=== PATIENT | female | born 1965 | race Caucasian/White ===

== ENCOUNTER 2016-09-02 16:07 | Emergency (ER) | payer SELFPAY ==
[~2016-09-02] VITALS: Ht 177.8 cm; Wt 92.1 kg
[~2016-09-02 16:07] MED LIST: BACT800T5 PO; IBUP200T2 PO; MEDR4PAK PO; PRIL40CA PO
[2016-09-02 16:17] VITALS: PULSE 67; RESP 19; TEMP 98.4; O2SAT 100
[2016-09-02] MEDS ORDERED: LEVO25TA4 PO (16:26)
--- NOTE | 2016-09-02 16:39 | PD ---
HPI . Left lower quadrant pain Chief Complaint: Abdominal Pain Time Seen by Provider: 16:23 Travel History International Travel<30 days: No Contact w/Intl Traveler<30days: No Traveled to known affect area: No History of Present Illness HPI Patient presents with the acute onset of severe left lower quadrant pain. She reports that the symptom onset was sudden. It is a sharp pain that is rated 9/ 10. She states that she cannot get comfortable. There are no exacerbating or relieving factors. Her pain is associated with nausea but no vomiting. No fever. No urinary tract symptoms. No previous similar history. PFSH Past Medical History Diminished Hearing: No GERD: Yes Musculoskeletal: Yes (SCIATICA,DDD) Immunizations Current: Yes Thyroid Disease: Yes Tetanus Vaccination: < 5 Years Influenza Vaccination: No ?: Not : 2 Para: 2 Ovarian Cysts: Yes (BIALTERALLY REMOVED) Tubal Ligation: Yes (1986) Past Surgical History Gynecologic Surgery: Yes (OVARIAN CYSTS 1998, TUBAL LIGATION 1986) Social History Alcohol Use: Yes (SOCIALLY) Tobacco Use: Yes Substance Use: No Allergies-Medications (Allergen,Severity, Reaction): Coded Allergies: Naprosyn (Verified Allergy, Mild, Nausea/Vomiting, 09/02/16) Codeine (Verified Adverse Reaction, Intermediate, GI upset, 09/02/16) Reported Meds & Prescriptions Reported Meds & Active Scripts Active Reported Levothyroxine (Levothyroxine Sodium) 25 Mcg Tab 25 Mcg PO DAILY Review of Systems Except as stated in HPI: all other systems reviewed are Neg General / Constitutional: Positive: Other (can't be still), No: Fever, Chills Gastrointestinal: Positive: Nausea, Abdominal Pain, No: Vomiting, Diarrhea Genitourinary: Positive: Pelvic Pain, No: Urgency, Frequency, Dysuria, Hematuria, Flank Pain Physical Exam Narrative GENERAL: The patient is very restless in the bed. SKIN: Warm and dry. HEAD: Atraumatic. Normocephalic. EYES: Pupils equal and round. Extraocular movements are intact. ENT: No nasal bleeding or discharge. Mucous membranes pink and moist. NECK: Trachea midline. Neck is supple. CARDIOVASCULAR: Regular rate and rhythm. RESPIRATORY: No accessory muscle use. GASTROINTESTINAL: Abdomen soft. Tender along the left side. Maximal tenderness is just above the left pubic symphysis. There is no CVA tenderness. MUSCULOSKELETAL: No obvious deformities. No edema. NEUROLOGICAL: Awake and alert. No obvious cranial nerve deficits. Motor grossly within normal limits. Normal speech. PSYCHIATRIC: Appropriate mood and affect; insight and judgment normal. Data Data Last Documented VS Vital Signs Date Time Temp Pulse Resp B/P Pulse Ox O2 Delivery O2 Flow Rate FiO2 09/02/16 17:18 18 09/02/16 17:11 80 126/74 97 Room Air 09/02/16 16:17 98.4 Orders Sodium Chlor 0.9% 1000 Ml Inj (Ns 1000 M (09/02/16 16:45) Ondansetron Inj (Zofran Inj) (09/02/16 16:45) Ct Abd/Pel W Iv Contrast(Rout) (09/02/16 16:33) Urinalysis - C+S If Indicated (09/02/16 16:33) Morphine Inj (Morphine Inj) (09/02/16 17:00) Morphine Inj (Morphine Inj) (09/02/16 17:00) Iohexol 350 Inj (Omnipaque 350 Inj) (09/02/16 17:09) Labs Laboratory Tests Test 09/02/16 16:40 Urine Collection Type CLEAN CATCH Urine Color STRAW Urine Turbidity MOD Urine pH 7.0 Urine Specific [place] 1.011 Urine Protein NEG mg/dL Urine Glucose (UA) NEG mg/dL Urine Ketones NEG mg/dL Urine Occult Blood LARGE Urine Nitrite NEG Urine Bilirubin NEG Urine Leukocyte Esterase NEG Urine RBC 50-99 /hpf Urine Squamous Epithelial 6-8 /hpf Cells Urine Amorphous Sediment LARGE Microscopic Urinalysis Comment CULT NOT INDICATED Urine Collection Time 1620 MDM Medical Decision Making Medical Screen Exam Complete: Yes Emergency Medical Condition: Yes Differential Diagnosis Differential diagnosis of abdominal pain includes but is not limited to gastritis, pancreatitis, hepatitis, gastroenteritis, gallbladder disease, constipation, urinary retention, UTI, peptic ulcer disease, diverticulitis or appendicitis Narrative Course This patient presents with the sudden onset of severe left lower quadrant abdominal pain. She looks like someone with a kidney stone. She will initially be treated with IV fluids and IV analgesics. A UA and CT have been ordered. Further evaluation and treatment will be based upon these results. Laboratory Tests Test 09/02/16 16:40 Urine Collection Type CLEAN CATCH Urine Color STRAW Urine Turbidity MOD Urine pH 7.0 Urine Specific [place] 1.011 Urine Protein NEG mg/dL Urine Glucose (UA) NEG mg/dL Urine Ketones NEG mg/dL Urine Occult Blood LARGE Urine Nitrite NEG Urine Bilirubin NEG Urine Leukocyte Esterase NEG Urine RBC 50-99 /hpf Urine Squamous Epithelial 6-8 /hpf Cells Urine Amorphous Sediment LARGE Microscopic Urinalysis Comment CULT NOT INDICATED Urine Collection Time 1620 CT>> Left-sided obstructive uropathy with mild left hydronephrosis. Calculus in left ureter at the level of L4-5 which measures about 6.5 mm in length and just under 4 mm in transverse diameter. The patient is now comfortable. She'll be discharged home with prescriptions for Percocet, Phenergan and Flomax. She will follow up with urology in the near future. Diagnosis Primary Impression: Renal calculus, left Referrals: Elia Ashraf MD Patient Instructions: General Instructions, Kidney Stones (DC), Narcotic given in the ED Med/Other Pt SpecificInfo: Prescription(s) given Scripts Tamsulosin (Flomax)0.4 Mg Cap0.4 Mg PO HS #10 CAP Ref 0 Prov:Hali Schultz MD 09/02/16 Promethazine (Phenergan)25 Mg [id number] Mg PO Q6H PRN (NAUSEA OR VOMITING) #15 TAB Ref 0 Prov:Hali Schultz MD 09/02/16 Oxycodone-Acetaminophen (Percocet)5-325 mg Tab1 Tab PO Q4H PRN (PAIN) #15 TAB Ref 0 Prov:Hali Schultz MD 09/02/16 Disposition: 01 DISCHARGE HOME Condition: Stable aHli Schultz MD Sep 02, 2016 16:39
[2016-09-02] MEDS ORDERED: SODIUM CHLOR 0.9% 1000 ML INJ 1,000 ML IV ONE (16:45)
[2016-09-02] MEDS ORDERED: MORPHINE SULFATE 4 MG/ML INJ IV PUSH PRN ×2 (16:45→17:00)
[2016-09-02] MEDS ORDERED: ONDANSETRON HCL 4 MG/2 ML VIAL IV PUSH ONE (16:45)
[2016-09-02 16:47] LABS: BLOOD, URINE LARGE (NEG); GLUCOSE,URINE NEG (NEG); KETONE, URINE NEG (NEG); NITRITE,URINE NEG (NEG)
[2016-09-02 16:48] LABS: METHOD OF COLLECTION CLEAN CATCH
[2016-09-02 16:49] LABS: URINE COLOR STRAW (YELLW/STRAW)
[2016-09-02 16:52] LABS: COMMENT (UR) CULT NOT INDICATED; CULTURE IF INDICATED CULT NOT INDICATED
[2016-09-02] MEDS ORDERED: MORPHINE SULFATE 8 MG/ML INJ IV PUSH PRN (17:00)
[2016-09-02] MEDS ORDERED: IOHEXOL 350 MG/ML 10 ML VIAL (for RAD DIAG) IV ONE (17:09)
[2016-09-02 17:11] VITALS: BP 126/74; PULSE 80; RESP 20; O2SAT 97
--- NOTE | 2016-09-02 17:17 | RADRPT ---
EXAM DATE/TIME: 09/02/2016 16:47 [facility] COMPARISON: No previous studies available for comparison. INDICATIONS : Left lower quadrant abdominal pain. IV CONTRAST: 100 cc Omnipaque 350 (iohexol) IV ORAL CONTRAST: No oral contrast ingested. RADIATION DOSE: 16.97 CTDIvol (mGy) MEDICAL HISTORY : DDD SURGICAL HISTORY : Tubal ligation. Ovarian cyst removed 1998 ENCOUNTER: Initial ACUITY: 1 day PAIN SCALE: 10/10 LOCATION: Left lower quadrant TECHNIQUE: Volumetric scanning of the abdomen and pelvis was performed. Using automated exposure control and ad justment of the mA and/or kV according to patient size, radiation dose was kept as low as reasonably achievable to obtain optimal diagnostic quality images. DICOM format image data is available electro nically for review and comparison. FINDINGS: There is minimal dependent atelectasis at the lung bases. Mild fatty liver. Spleen, adrenals, right kidney and pancreas unremarkable. There is a mild left-side d obstructive uropathy with mild left hydronephrosis. There is a calculus in the proximal left ureter extending over length of about 6.5 mm and a diameter of about 4 mm. No free fluid. No bowel obstruction. No adenopathy. CONCLUSION: 1. Left-sided obstructive uropathy with mild left hydronephrosis. Calculus in left ureter at the leve l of L4-5 which measures about 6.5 mm in length and just under 4 mm in transverse diameter. Kota Dunn MD on September 02, 2016 at 17:09 Board Certified Radiologist. This report was verified electronically.
[2016-09-02 17:18] VITALS: RESP 18
[2016-09-02] MEDS ORDERED: PERC5TAB12 PO (17:21)
[2016-09-02] MEDS ORDERED: TAMS5CAP PO (17:21)
[2016-09-02] MEDS ORDERED: PROM25TA10 PO (17:21)
[2016-09-02 17:38] VITALS: BP 122/78
== END 2016-09-02 17:39 | disposition home or self-care (01) ==
LOC: PHED 16:07
DX: N20.0 Calculus of kidney (principal)
CPT/HCPCS: 74177; 81001; 96374; 96375; 99285; J2270; J2405; J7030; Q9967

== ENCOUNTER 2016-09-29 14:36 | Emergency (ER) | payer OTHER ==
[~2016-09-29] VITALS: Ht 177.8 cm; Wt 94.0 kg
[~2016-09-29 14:36] MED LIST changes: -BACT800T5 PO; -IBUP200T2 PO; +LEVO25TA4 PO; -MEDR4PAK PO; +PERC5TAB12 PO; -PRIL40CA PO; +PROM25TA10 PO; +TAMS5CAP PO
[2016-09-29 14:52] VITALS: BP 142/78; PULSE 74; RESP 16; TEMP 98; O2SAT 98
[2016-09-29] MEDS ORDERED: PROMETHAZINE INJ 25 MG/ML VIAL IM ONE (15:15)
[2016-09-29] MEDS ORDERED: MORPHINE SULFATE 8 MG/ML INJ IM ONE (15:15)
[2016-09-29] MEDS ORDERED: PERC5TAB12 PO (15:18)
--- NOTE | 2016-09-29 15:20 | PD ---
HPI Chief Complaint: Flank/Kidney Pain Time Seen by Provider: 14:52 Travel History International Travel<30 days: No Contact w/Intl Traveler<30days: No Traveled to known affect area: No History of Present Illness HPI This patient was here 4 weeks ago with flank pain and found to have a kidney stone. She has called and made a urology appointment but it is not until October 04, about 4 days from now. Her flank pain returned and she called the urologist office but they said they could not fit her in any sooner and told her to come here. She has no fever or injury. No vomiting or diarrhea. Discomfort radiates into her left groin just like before. symptoms severity is moderate PFSH Past Medical History Diminished Hearing: No GERD: Yes Musculoskeletal: Yes (SCIATICA,DDD) Immunizations Current: Yes Thyroid Disease: Yes Tetanus Vaccination: < 5 Years ?: Not : 2 Para: 2 Ovarian Cysts: Yes (BIALTERALLY REMOVED) Tubal Ligation: Yes (1986) Past Surgical History Gynecologic Surgery: Yes (OVARIAN CYSTS 1998, TUBAL LIGATION 1986) Social History Alcohol Use: Yes (SOCIALLY) Tobacco Use: Yes Substance Use: No Allergies-Medications (Allergen,Severity, Reaction): Coded Allergies: Naprosyn (Verified Allergy, Mild, Nausea/Vomiting, 09/29/16) Codeine (Verified Adverse Reaction, Intermediate, GI upset, 09/29/16) Reported Meds & Prescriptions Reported Meds & Active Scripts Active Flomax (Tamsulosin HCl) 0.4 Mg Cap 0.4 Mg PO HS Phenergan (Promethazine HCl) 25 Mg Tablet 25 Mg PO Q6H PRN Reported Levothyroxine (Levothyroxine Sodium) 25 Mcg Tab 25 Mcg PO DAILY Review of Systems General / Constitutional: No: Fever HENT: No: Headaches Cardiovascular: No: Chest Pain or Discomfort Physical Exam Narrative GASTROINTESTINAL: Abdomen soft, non-tender, nondistended. Positive bowel sounds. No hepato-splenomegaly, or palpable masses. No guarding. SKIN: Focused skin assessment reveals no rash or ulcers. Skin is warm and dry. Palpation shows no induration or nodules. Psych: Normal mood and affect. Normal insight and judgment. Data Data Last Documented VS Vital Signs Date Time Temp Pulse Resp B/P Pulse Ox O2 Delivery O2 Flow Rate FiO2 09/29/16 14:52 98.0 74 16 142/78 98 Orders Promethazine Inj (Phenergan Inj) (09/29/16 15:15) Morphine Inj (Morphine Inj) (09/29/16 15:15) MDM Medical Decision Making Medical Screen Exam Complete: Yes Emergency Medical Condition: Yes Medical Record Reviewed: Yes Differential Diagnosis Kidney stone, sciatica, lumbar strain Narrative Course I have reviewed the patient's electronic medical record. Patient was here 4 weeks ago and had urinalysis that showed hematuria as well as CT scan revealing a left-sided renal stone with mild hydronephrosis At this point I don't feel repeating the workup would be helpful in changing management. I gave her injection of Phenergan and morphine for symptom relief. I have refilled some Percocet to help with pain while she awaits her urology appointment in 4 days. Diagnosis Primary Impression: Renal calculus, left Additional Instructions: The patient was advised to follow up with urologist and return if they worsen. The patient was warned about potential sedation for the medications they will receive on prescription. Med/Other Pt SpecificInfo: Prescription(s) given Scripts Oxycodone-Acetaminophen (Percocet)5-325 mg Tab1 Tab PO Q6H PRN (PAIN) #20 TAB Ref 0 Prov:Abiel Greenfield MD 09/29/16 Disposition: 01 DISCHARGE HOME Condition: Stable Abiel Greenfield MD Sep 29, 2016 15:20
== END 2016-09-29 16:00 | disposition home or self-care (01) ==
LOC: PHED 14:36
DX: N20.0 Calculus of kidney (principal); E07.9 Disorder of thyroid, unspecified; Z87.19 Personal history of other diseases of the digestive system; Z87.39 Personal history of other diseases of the musculoskeletal system and connective tissue
CPT/HCPCS: 96372; 99284; J2270; J2550